=== PATIENT | female | born 1975 | race Two or more races ===

== ENCOUNTER 2021-04-17 14:31 | Emergency (ER) | payer OTHER, BC ==
[2021-04-17 16:28] LABS: HEMOGLOBIN 13.6 gm/dl (12.3-15.3); RED BLOOD COUNT 4.28 M/UL (4.00-5.10); WHITE BLOOD COUNT 5.5 K/UL (4.5-11.0)
[2021-04-17 17:09] LABS: BUN/CREATININE RATIO 16 (0-10)
== END 2021-04-17 20:06 | disposition home or self-care (01) ==
LOC: ER1 14:31
PROVIDERS: Emergency Medicine
DX: R07.9 Chest pain, unspecified (principal); R51.9 Headache, unspecified; M79.604 Pain in right leg; R10.9 Unspecified abdominal pain; V49.40XA Driver injured in collision with unspecified motor vehicles in traffic accident, initial encounter
CPT/HCPCS: 70450; 71045; 71260; 72100; 72125; 80053; 81001; 82550; 82553; 83874; 84484; 84702; 85025; 99284; J7030; Q9967